=== PATIENT | female | born 1980 | race Hispanic/Latino ===

== ENCOUNTER 2023-10-12 10:49 | Emergency (ER) | payer MEDICAID ==
[~2023-10-12] VITALS: Ht 160 cm; Wt 84.4 kg
[2023-10-12] MEDS ORDERED: MORPHINE 4 MG SYG IVP ONE (12:00)
[2023-10-12] MEDS ORDERED: ONDANSETRON ODT 4MG TAB SL ONE (12:00)
[2023-10-12 15:36] VITALS: BP 136/89; PULSE 75; RESP 16; O2SAT 98
[2023-10-12] MEDS ORDERED: HYDR-4060 PO (17:24)
[2023-10-12] MEDS ORDERED: IBUP-2070 PO (17:24)
== END 2023-10-12 17:49 | disposition home or self-care (01) ==
LOC: EDBD 10:49 → EDH 10:49
DX: R07.89 Other chest pain (principal); M79.602 Pain in left arm; I10 Essential (primary) hypertension; E11.9 Type 2 diabetes mellitus without complications; E78.00 Pure hypercholesterolemia, unspecified; F41.9 Anxiety disorder, unspecified; J45.909 Unspecified asthma, uncomplicated; Z90.49 Acquired absence of other specified parts of digestive tract; Z90.89 Acquired absence of other organs; Z90.710 Acquired absence of both cervix and uterus; Z98.890 Other specified postprocedural states
CPT/HCPCS: 99284; 96374; 71045; 72040; 73090; 73060; 73030; 29125; 72070; 71110; J2270

== ENCOUNTER 2024-03-01 20:23 | Emergency (ER) | payer MEDICAID ==
[~2024-03-01] VITALS: Ht 160 cm; Wt 86.2 kg
[~2024-03-01 20:23] MED LIST: HYDR-4060 PO; IBUP-2070 PO
[2024-03-01] MEDS: HYDROCODONE/ACETAMINOPHEN 5/325 MG TAB PO STA (21:03)
[2024-03-01] MEDS: METHOCARBAMOL 500 MG TABLET PO STA (21:03)
[2024-03-01] MEDS: ONDANSETRON ODT 4MG TAB SL STA (23:43)
[2024-03-01 23:53] VITALS: BP 124/75; PULSE 74; RESP 12; O2SAT 95
[2024-03-01] MEDS ORDERED: METH-811 PO (23:54)
== END 2024-03-02 00:06 | disposition home or self-care (01) ==
LOC: EDH 20:23
DX: M54.50 Low back pain, unspecified (principal); M54.2 Cervicalgia; I10 Essential (primary) hypertension; E78.00 Pure hypercholesterolemia, unspecified; E11.9 Type 2 diabetes mellitus without complications; F32.A Depression, unspecified; J45.909 Unspecified asthma, uncomplicated; F41.9 Anxiety disorder, unspecified; G43.909 Migraine, unspecified, not intractable, without status migrainosus; Z88.8 Allergy status to other drugs, medicaments and biological substances; Z90.710 Acquired absence of both cervix and uterus; Z90.89 Acquired absence of other organs; Z90.49 Acquired absence of other specified parts of digestive tract
CPT/HCPCS: 72125; 72131